=== PATIENT | female | born 1980 | race Caucasian/White ===

== ENCOUNTER 2025-05-08 12:24 | Outpatient (CLI) | payer BC | END 2025-05-08 12:25 | disposition home or self-care (01) | LOC: BICMAMMO 12:24 | PROVIDERS: ATTEND Internal Medicine | DX: Z12.31 Encounter for screening mammogram for malignant neoplasm of breast (principal); Z80.3 Family history of malignant neoplasm of breast; Z91.89 Other specified personal risk factors, not elsewhere classified | CPT/HCPCS: 77063; 77067 ==